=== PATIENT | male | born 1980 | race American Indian/Alaskan Native ===

== ENCOUNTER 2016-08-28 20:55 | Emergency (ER) | payer OTHER ==
[2016-08-28 21:11] VITALS: BP 125/72
[2016-08-28 21:50] LABS: Hematocrit 43.7 % (35.5-45.6); Hemoglobin 14.8 gm/dl (11.8-15.2); Mean Corpuscular HGB Conc 34 % (32-34); Mean Corpuscular Hemoglobin 29 pg (28-32); Mean Corpuscular Volume 86 fl (84-94); Platelet Count 222 K/mm3 (140-440); Red Cell Distribution Width 12.2 % (13.2-15.2); White Blood Count 8.4 K/mm3 (4.5-11.0)
[2016-08-28 21:53] LABS: Anion Gap 17 mmol/L; BUN/Creatinine Ratio 17.14; Blood Urea Nitrogen 12 mg/dL (9-20); Calcium 8.9 mg/dL (8.4-10.2); Carbon Dioxide 25 mmol/L (22-30); Chloride 104.2 mmol/L (98-107); Glucose 95 mg/dL (75-100); Sodium 142 mmol/L (137-145)
[2016-08-28 22:29] LABS: Basophils % (Manual) 0 % (0.0-1.8); Blastocytes % (Manual) 0 %
[2016-08-28 22:31] LABS: Anisocytosis 2+; Diff Status Complete
[2016-08-29] MEDS ORDERED: TYLENOL PO ONE (03:11)
[2016-08-29] MEDS ORDERED: TORADOL IM ONE (03:11)
--- NOTE | 2016-08-29 03:12 | Emergency Department Report ---
ED Chest Pain HPI - General Chief Complaint: Dyspnea/Respdistress Stated Complaint: CP/SOB Time Seen by Provider: 08/29/16 03:04 Source: patient, RN notes reviewed Mode of arrival: Ambulatory Limitations: No Limitations - History of Present Illness Initial Comments: This is a 36-year-old male. He does not have a primary care doctor. He denies chronic medical conditions. He consumes marijuana recreationally. 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 He presents to the ER complaining of chest pain. Chest pain is on the left side and right side of his chest. Increases with palpation and coughing. Positive nausea, no vomiting. Patient reports subjective wheezing. There is no leg pain. There is no leg swelling. No cocaine use. No hematemesis or bright red blood per rectum. No history of ACS in the family that he is aware of. MD Complaint: chest pain -: Gradual Onset: during rest Pain Location: left chest, right chest Severity: moderate Severity scale (0 -10): 6 Quality: aching Consistency: intermittent Improves With: rest Worsens With: palpation Context: recent travel re: nausea Aspirin use within the Past 7 Days: (0) No - Related Data On Oral Contraceptives: No Previous Rx's Medication Instructions Recorded Last Taken Type Albuterol Sulfate [Proair 90 mcg IH Q4HR PRN #2 aer.[email or web address] 08/29/16 Unknown Rx Respiclick] Levofloxacin [Levaquin] 750 mg PO QDAY #6 tablet 08/29/16 Unknown Rx Metoclopramide [Reglan] 10 mg PO QID PRN #30 tablet 08/29/16 Unknown Rx Allergies Allergy/AdvReac Type Severity Reaction Status Date / Time passion fruit Allergy Unknown Verified 08/28/16 21:11 tomato Allergy Unknown Verified 08/28/16 21:11 KWABENA score - Kwabena Score Age > 65: (0) No Aspirin use within the Past 7 Days: (0) No 3 or more CAD Risk Factors: (0) No 2 or more Angina events in past 24 hrs: (0) No Known CAD with more than 50% Stenosis: (0) No Elevated Cardiac Markers: (0) No ST Deviation Greater than 0.5mm: (0) No KWABENA Score: 0 ED Review of Systems ROS: Stated complaint: CP/SOB Other details as noted in HPI Constitutional: denies: fever Eyes: denies: vision change ENT: denies: epistaxis Respiratory: see HPI Cardiovascular: chest pain Gastrointestinal: denies: abdominal pain Genitourinary: denies: urgency, dysuria Musculoskeletal: denies: arthralgia Skin: denies: lesions Neurological: denies: weakness Psychiatric: denies: anxiety ED Past Medical Hx - Past Medical History Additional medical history: seasonal allergies - Social History Smoking Status: Current Every Day Smoker Substance Use Type: None - Medications Home Medications: Home Medications Medication Instructions Recorded Confirmed Last Taken Type Albuterol Sulfate [Proair 90 mcg IH Q4HR PRN #2 aer.[email or web address] 08/29/16 Unknown Rx Respiclick] Levofloxacin [Levaquin] 750 mg PO QDAY #6 tablet 08/29/16 Unknown Rx Metoclopramide [Reglan] 10 mg PO QID PRN #30 tablet 08/29/16 Unknown Rx ED Physical Exam - General Limitations: No Limitations General appearance: alert, in no apparent distress, other (patient initially sleeping comfortably in the stretcher. When woken up for the interview, he is pleasant, cooperative, laughing, smiling and joking.) - Head Head exam: Present: atraumatic, normocephalic - Eye Eye exam: Present: normal appearance, EOMI. Absent: nystagmus - ENT ENT exam: Present: normal exam, normal orophraynx, mucous membranes moist, normal external ear exam - Neck Neck exam: Present: normal inspection, full ROM. Absent: tenderness - Respiratory Respiratory exam: Present: normal lung sounds bilaterally, chest wall tenderness. Absent: respiratory distress, wheezes, rales, rhonchi, stridor - Cardiovascular Cardiovascular Exam: Present: regular rate, normal rhythm, normal heart sounds. Absent: bradycardia, tachycardia, irregular rhythm, systolic murmur, diastolic murmur, rubs, gallop - GI/Abdominal GI/Abdominal exam: Present: soft, normal bowel sounds. Absent: distended, tenderness, guarding, rebound, rigid, pulsatile mass - Rectal Rectal exam: Present: deferred - Extremities Exam Extremities exam: Present: normal inspection, full ROM, normal capillary refill. Absent: tenderness, pedal edema, joint swelling, calf tenderness - Back Exam Back exam: Present: normal inspection, full ROM. Absent: tenderness, CVA tenderness (R), CVA tenderness (L), muscle spasm, paraspinal tenderness, vertebral tenderness - Neurological Exam Neurological exam: Present: alert, oriented X3, normal gait, other (Extraocular movements intact. Tongue midline. No facial droop. Facial sensation intact to light touch in the V1, V2, V3 distribution bilaterally. 5 and 5 strength in 4 extremities.. Sensation is intact to light touch in 4 extremities.). Absent : motor sensory deficit - Psychiatric Psychiatric exam: Present: normal affect, normal mood - Skin Skin exam: Present: warm, dry, intact, normal color. Absent: rash ED Course Vital Signs 08/28/16 08/29/16 08/29/16 21:03 03:06 03:07 Temperature 98.4 F Pulse Rate 98 H 76 Respiratory 20 18 Rate Blood Pressure 125/72 O2 Sat by Pulse 99 100 Oximetry - Reevaluation(s) Reevaluation #1: 08/29/16 04:19 Differential diagnosis: Pneumonia, costochondritis, GERD, reflux, acute coronary syndrome, pulmonary embolus, costochondritis, pleuritis, pericarditis Assessment and plan: 36-year-old male with clinically atypical chest pain, abnormal EKG with a rightward axis with no prior for comparison, works as a long -distance class a truck driver. He is not hypoxic, and he is breathing quite comfortably. I find him to be low risk by well's criteria, think that he has low pretest probability, although he did have a transient episode of tachycardia with a heart rate of 101 while I was evaluating him. Troponins are negative 2, I find him to be low risk by KWABENA score, and low risk by HEART score. X-ray of the chest is not consistent with pneumonia, or acute intrapulmonary process. A d-dimer has been ordered and is pending. The patient felt improved after his pain was treated symptomatically. Reevaluation #2: 08/29/16 04:38 d-dimer is elevated. Repeat troponin is negative. Patient feels improved at the pain medication, had nonspecific welts develop after being given Toradol. CT angiogram ordered. Benadryl and Pepcid ordered. Reevaluation #3: 08/29/16 05:28 CT scan of the chest negative for pulmonary embolus. Infiltrate noted in the right middle lobe and left lower lobe. Patient saturating well. No active vomiting. Sleeping comfortably. may be a case of atypical walking pneumonia. Will be started on Levaquin. Patient will be discharged with Levaquin. Cast to follow up with a primary care doctor. Counseled to discontinue cannabis consumption. Return precautions are reviewed. ED Medical Decision Making - Lab Data Result diagrams: 08/28/16 21:19 08/28/16 21:19 Vital Signs 08/28/16 08/29/16 08/29/16 21:03 03:06 03:07 Temperature 98.4 F Pulse Rate 98 H 76 Respiratory 20 18 Rate Blood Pressure 125/72 O2 Sat by Pulse 99 100 Oximetry Lab Results 08/28/16 08/28/16 08/29/16 Range/Units 21:19 21:19 03:37 WBC 8.4 (4.5-11.0) K/mm3 RBC 5.10 H (3.65-5.03) M/mm3 Hgb 14.8 (11.8-15.2) gm/dl Hct 43.7 (35.5-45.6) % MCV 86 (84-94) fl MCH 29 (28-32) pg MCHC 34 (32-34) % RDW 12.2 L (13.2-15.2) % Plt Count 222 (140-440) K/mm3 Lymph % (Auto) Batch Dumper Lymph # Batch Dumper Add Manual Diff Complete Total Counted 100 Seg Neutrophils % Batch Dumper Seg Neuts % (Manual) 29.0 L (40.0-70.0) % Band Neutrophils % 0 % Lymphocytes % (Manual) 55.0 H (13.4-35.0) % Reactive Lymphs % (Man) 0 % Monocytes % (Manual) 9.0 H (0.0-7.3) % Eosinophils % (Manual) 7.0 H (0.0-4.3) % Basophils % (Manual) 0 (0.0-1.8) % Metamyelocytes % 0 % Myelocytes % 0 % Promyelocytes % 0 % Blast Cells % 0 % Nucleated RBC % Not Reportable Seg Neutrophils # Man 2.4 (1.8-7.7) K/mm3 Band Neutrophils # 0.0 K/mm3 Lymphocytes # (Manual) 4.6 (1.2-5.4) K/mm3 Abs React Lymphs (Man) 0.0 K/mm3 Monocytes # (Manual) 0.8 (0.0-0.8) K/mm3 Eosinophils # (Manual) 0.6 H (0.0-0.4) K/mm3 Basophils # (Manual) 0.0 (0.0-0.1) K/mm3 Metamyelocytes # 0.0 K/mm3 Myelocytes # 0.0 K/mm3 Promyelocytes # 0.0 K/mm3 Blast Cells # 0.0 K/mm3 WBC Morphology Not Reportable Hypersegmented Neuts Not Reportable Hyposegmented Neuts Not Reportable Hypogranular Neuts Not Reportable Smudge Cells Not Reportable Toxic Granulation Not Reportable Toxic Vacuolation Not Reportable Dohle Bodies Not Reportable Pelger-Huet Anomaly Not Reportable Marv Rods Not Reportable Platelet Estimate Appears normal Clumped Platelets Not Reportable Plt Clumps, EDTA Not Reportable Large Platelets Not Reportable Giant Platelets Not Reportable Platelet Satelliting Not Reportable Plt Morphology Comment Not Reportable RBC Morphology Not Reportable Dimorphic RBCs Not Reportable Polychromasia Not Reportable Hypochromasia Not Reportable Poikilocytosis Not Reportable Anisocytosis 2+ Microcytosis Not Reportable Macrocytosis Not Reportable Spherocytes Not Reportable Pappenheimer Bodies Not Reportable Sickle Cells Not Reportable Target Cells Not Reportable Tear Drop Cells Not Reportable Ovalocytes Not Reportable Helmet Cells Not Reportable [place] Bodies Not Reportable [place] Rings Not Reportable Elizabeth Cells Not Reportable Bite Cells Not Reportable Crenated Cell Not Reportable Elliptocytes Not Reportable Acanthocytes (Spur) Not Reportable Rouleaux Not Reportable Hemoglobin C Crystals Not Reportable Schistocytes Not Reportable Malaria parasites Not Reportable Keven Bodies Not Reportable Hem Pathologist Commnt No PT 14.8 (12.2-14.9) Sec. INR 1.17 H (0.87-1.13) Sodium 142 (137-145) mmol/L Potassium 4.0 (3.6-5.0) mmol/L Chloride 104.2 (98-107) mmol/L Carbon Dioxide 25 (22-30) mmol/L Anion Gap 17 mmol/L BUN 12 (9-20) mg/dL Creatinine 0.7 L (0.8-1.5) mg/dL Estimated GFR > 60 ml/min BUN/Creatinine Ratio 17.14 % Glucose 95 (75-100) mg/dL Calcium 8.9 (8.4-10.2) mg/dL Troponin T < 0.010 (0.00-0.029) ng/mL 08/29/16 Range/Units 03:37 WBC (4.5-11.0) K/mm3 RBC (3.65-5.03) M/mm3 Hgb (11.8-15.2) gm/dl Hct (35.5-45.6) % MCV (84-94) fl MCH (28-32) pg MCHC (32-34) % RDW (13.2-15.2) % Plt Count (140-440) K/mm3 Lymph % (Auto) Lymph # Add Manual Diff Total Counted Seg Neutrophils % Seg Neuts % (Manual) (40.0-70.0) % Band Neutrophils % % Lymphocytes % (Manual) (13.4-35.0) % Reactive Lymphs % (Man) % Monocytes % (Manual) (0.0-7.3) % Eosinophils % (Manual) (0.0-4.3) % Basophils % (Manual) (0.0-1.8) % Metamyelocytes % % Myelocytes % % Promyelocytes % % Blast Cells % % Nucleated RBC % Seg Neutrophils # Man (1.8-7.7) K/mm3 Band Neutrophils # K/mm3 Lymphocytes # (Manual) (1.2-5.4) K/mm3 Abs React Lymphs (Man) K/mm3 Monocytes # (Manual) (0.0-0.8) K/mm3 Eosinophils # (Manual) (0.0-0.4) K/mm3 Basophils # (Manual) (0.0-0.1) K/mm3 Metamyelocytes # K/mm3 Myelocytes # K/mm3 Promyelocytes # K/mm3 Blast Cells # K/mm3 WBC Morphology Hypersegmented Neuts Hyposegmented Neuts Hypogranular Neuts Smudge Cells Toxic Granulation Toxic Vacuolation Dohle Bodies Pelger-Huet Anomaly Marv Rods Platelet Estimate Clumped Platelets Plt Clumps, EDTA Large Platelets Giant Platelets Platelet Satelliting Plt Morphology Comment RBC Morphology Dimorphic RBCs Polychromasia Hypochromasia Poikilocytosis Anisocytosis Microcytosis Macrocytosis Spherocytes Pappenheimer Bodies Sickle Cells Target Cells Tear Drop Cells Ovalocytes Helmet Cells [place] Bodies [place] Rings Elizabeth Cells Bite Cells Crenated Cell Elliptocytes Acanthocytes (Spur) Rouleaux Hemoglobin C Crystals Schistocytes Malaria parasites Keven Bodies Hem Pathologist Commnt PT (12.2-14.9) Sec. INR (0.87-1.13) Sodium (137-145) mmol/L Potassium (3.6-5.0) mmol/L Chloride (98-107) mmol/L Carbon Dioxide (22-30) mmol/L Anion Gap mmol/L BUN (9-20) mg/dL Creatinine (0.8-1.5) mg/dL Estimated GFR ml/min BUN/Creatinine Ratio % Glucose (75-100) mg/dL Calcium (8.4-10.2) mg/dL Troponin T < 0.010 (0.00-0.029) ng/mL - EKG Data When compared to previous EKG there are: previous EKG unavailable 08/29/16 04:21 normal sinus, 78 bpm, borderline rightward axis, abnormal EKG, morphologically consistent with STEMI, there is no prior EKG available for comparison. - Radiology Data Radiology results: report reviewed, image reviewed interpreted by me: X-ray of the chest negative CT angiogram of the chest: No pulmonary embolus, left lower lobe infiltrate, right middle lobe infiltrate. Critical care attestation.: If time is entered above; I have spent that time in minutes in the direct care of this critically ill patient, excluding procedure time. ED Disposition Clinical Impression: Chest pain Disposition: DISCHARGED TO HOME OR SELFCARE Is pt being admited?: No Does the pt Need Aspirin: No Condition: Stable Instructions: Community-acquired Pneumonia (ED) Additional Instructions: Laboratory studies were unremarkable. CT scan of the chest suggested pneumonia in the right middle lobe and left lower lobe lung. Take a breathing medication as needed. Take antibiotics as directed. Do not consume alcohol while taking the medication. Take nausea medication as needed. Discontinue marijuana consumption. Follow-up with the primary care doctor within the next week. Dr. Raymundo is a local primary care doctor. EKG demonstrated nonspecific abnormalities, which should be followed up by her primary care doctor or operations staff specialist security. Return to the ER right away with new pain, worsened pain, migration of pain, fevers or chills, intractable nausea or vomiting, inability to tolerate liquid feeds. Referrals: PRIMARY CARE, [Primary Care Provider] - 3-5 Days VERNELL RAYMUNDO MD [Staff Physician] - 3-5 Days
[2016-08-29 04:03] LABS: INR 1.17 (0.87-1.13)
[2016-08-29] MEDS ORDERED: NACL 0.9% 1000 ML 1,000 ML IV ONE (04:34)
[2016-08-29] MEDS ORDERED: BENADRYL IV ONE (04:36)
[2016-08-29] MEDS ORDERED: PEPCID IV ONE (04:36)
--- NOTE | 2016-08-29 05:18 | Cat Scan Report ---
FINAL REPORT PROCEDURE: CT ANGIO CHEST TECHNIQUE: Computerized axial tomographic angiography of the chest and pulmonary arteries was performed after the IV injection of iodinated nonionic contrast. The image data was postprocessed using maximum intensity projection (MIP) and 2-dimensional multiplanar reformatted (MPR) techniques. The examination is specifically tailored to the evaluation of the pulmonary arteries per clinical request. HISTORY: Short of breath 786.09, chest pain 786.50, cp sob ? PE COMPARISON: No prior studies are available for comparison. FINDINGS: Heart and pericardium: Normal. Thoracic aorta: Normal. Pulmonary vasculature: Normal. No pulmonary emboli. Lymph nodes: No enlarged thoracic lymph nodes. Lungs: Lungs are well-expanded. There are infiltrates in the right middle lobe and left lower lobe. Pleural space: There are no effusions or pneumothoraces.. Musculoskeletal structures: No significant abnormality. Upper abdominal structures: No significant abnormality. IMPRESSION: There is no thoracic aortic aneurysm or dissection. There is no pulmonary embolism. Lungs are well-expanded. There are infiltrates in the right middle lobe and left lower lobe. There are no effusions or pneumothoraces.. .
[2016-08-29] MEDS ORDERED: LEVAQUIN 750MG/150ML 750 MG/150 ML BAG IV ONE (05:27)
--- NOTE | 2016-08-29 07:35 | XRay Report ---
CHEST 2 VIEWS INDICATION: Shortness of breath. COMPARISON: None similar at this institution. FINDINGS: PA and lateral chest radiographs demonstrate normal cardiomediastinal silhouette. Lung markings minimally crowded towards the bases without dense focal consolidation, pleural effusions or CHF. Intact bones. CONCLUSION: No acute disease in the chest. Thank you for the opportunity to participate in this patient's care.
== END 2016-08-29 06:42 | disposition home or self-care (01) ==
LOC: ED 20:55
DX: R07.9 Chest pain, unspecified (principal); F17.200 Nicotine dependence, unspecified, uncomplicated; Z91.018 Allergy to other foods
CPT/HCPCS: 36415; 71020; 71275; 80048; 84484; 85007; 85025; 85379; 85610; 93005; 93010; 96361; 96365; 96372; 96375; 99284; J1200; J1885; J1956; J7030; Q9967

== ENCOUNTER 2016-10-04 22:50 | Emergency (ER) | payer SELFPAY ==
[2016-10-05 04:30] LABS: Bilirubin,Urine NEG (Negative); Blood,Urine NEG (Negative); Ketones,Urine NEG (Negative); Leukocyte Esterase,Urine NEG (Negative); Mucus,Urine FEW /HPF; Nitrite,Urine NEG (Negative); Protein,Urine <15 mg/dL mg/dL (Negative)
--- NOTE | 2016-10-05 05:39 | Emergency Department Report ---
ED Male HPI - General Chief complaint: Urogenital-Male Stated complaint: POSS STD Time Seen by Provider: 10/05/16 04:13 Source: patient Mode of arrival: Ambulatory Limitations: No Limitations - History of Present Illness Initial comments: Patient here reported that his girlfriend reported to him that he has been exposed to Trichomonas from her. She denies any urinary burning frequency or urgency. Denies any abdominal, testicular or back pain. Pt here To get some Flagyl. He is unsure of girlfriend had clubbing chlamydia or gonorrhea she says she did not share with him. Denies any fever or chills. Denies any nausea vomiting. MD Complaint: other (exposure to STD) Onset/Timin -: days(s) Severity scale (0 -10): 0 new sexual partner denies: discharge, swelling, mass, rash, urinary retention, blood in urine, dysuria, fever, nausea/vomiting, incontinence - Related Data Sexually active: Yes Previous Rx's Medication Instructions Recorded Last Taken Type Albuterol Sulfate [Proair 90 mcg IH Q4HR PRN #2 aer.[email or web address] 08/29/16 Unknown Rx Respiclick] Levofloxacin [Levaquin] 750 mg PO QDAY #6 tablet 08/29/16 Unknown Rx Metoclopramide [Reglan] 10 mg PO QID PRN #30 tablet 08/29/16 Unknown Rx Allergies Allergy/AdvReac Type Severity Reaction Status Date / Time passion fruit Allergy Unknown Verified 08/28/16 21:11 tomato Allergy Unknown Verified 08/28/16 21:11 ED Review of Systems ROS: Stated complaint: POSS STD Other details as noted in HPI Comment: All other systems reviewed and negative Constitutional: denies: chills, fever ENT: denies: throat pain Respiratory: no symptoms reported Cardiovascular: denies: chest pain, palpitations, edema, syncope Gastrointestinal: denies: abdominal pain, nausea, vomiting Genitourinary: denies: urgency, dysuria, frequency, hematuria, discharge, testicular pain, testicular mass Musculoskeletal: denies: back pain, arthralgia Skin: denies: rash Neurological: denies: headache ED Past Medical Hx - Past Medical History Previous Medical History?: No Additional medical history: seasonal allergies - Surgical History Past Surgical History?: No - Family History Family history: no significant - Social History Smoking Status: Current Every Day Smoker Substance Use Type: None - Medications Home Medications: Home Medications Medication Instructions Recorded Confirmed Last Taken Type Albuterol Sulfate [Proair 90 mcg IH Q4HR PRN #2 aer.[email or web address] 08/29/16 Unknown Rx Respiclick] Levofloxacin [Levaquin] 750 mg PO QDAY #6 tablet 08/29/16 Unknown Rx Metoclopramide [Reglan] 10 mg PO QID PRN #30 tablet 08/29/16 Unknown Rx ED Physical Exam - General Limitations: No Limitations General appearance: alert, in no apparent distress - Head Head exam: Present: atraumatic, normocephalic, normal inspection - Eye Eye exam: Present: normal appearance, PERRL, EOMI Pupils: Present: normal accommodation - ENT ENT exam: Present: normal exam, normal orophraynx, mucous membranes moist, TM's normal bilaterally, normal external ear exam - Neck Neck exam: Present: normal inspection, full ROM. Absent: tenderness, meningismus, lymphadenopathy - Respiratory Respiratory exam: Present: normal lung sounds bilaterally. Absent: respiratory distress, wheezes, rales, rhonchi, stridor, chest wall tenderness - Cardiovascular Cardiovascular Exam: Present: regular rate, normal rhythm, normal heart sounds - GI/Abdominal GI/Abdominal exam: Present: soft, normal bowel sounds. Absent: distended, tenderness, guarding, rebound, rigid - exam: Present: normal inspection, testicular tenderness External exam: Present: normal external exam - Extremities Exam Extremities exam: Present: normal inspection, full ROM, normal capillary refill. Absent: tenderness, pedal edema, joint swelling, calf tenderness - Neurological Exam Neurological exam: Present: alert, oriented X3, normal gait, reflexes normal. Absent: motor sensory deficit - Psychiatric Psychiatric exam: Present: normal affect, normal mood - Skin Skin exam: Present: warm, dry, intact, normal color. Absent: rash ED Course Vital Signs 10/04/16 10/05/16 23:43 02:15 Temperature 98 F Pulse Rate 102 H 64 Respiratory 16 18 Rate Blood Pressure 130/71 113/73 Blood Pressure 130/71 [Left] O2 Sat by Pulse 100 97 Oximetry - Reevaluation(s) Reevaluation #1: 10/05/16 05:40 Patient remained stable throughout ED course. ED Medical Decision Making - Lab Data Lab Results 03/25/17 Range/Units 01:19 Urine Color Yellow (Yellow) Urine Turbidity Clear (Clear) Urine pH 7.0 (5.0-7.0) Ur Specific [place] 1.024 (1.003-1.030) Urine Protein <15 mg/dl (Negative) mg/dL Urine Glucose (UA) Neg (Negative) mg/dL Urine Ketones Neg (Negative) mg/dL Urine Blood Neg (Negative) Urine Nitrite Neg (Negative) Urine Bilirubin Neg (Negative) Urine Urobilinogen 2.0 (<2.0) mg/dL Ur Leukocyte Esterase Neg (Negative) Urine WBC (Auto) 2.0 (0.0-6.0) /HPF Urine RBC (Auto) 7.0 (0.0-6.0) /HPF Urine Mucus Few /HPF - Medical Decision Making ED course: Patient here reported that his girlfriend told them that she had Trichomonas but didn't tell him if she had anything else. He said he is here to get treatment for Trichomonas. Discussed STD with patient including Trichomonas, gonorrhea and chlamydia. Given the choice further testing for gonorrhea and chlamydia are to be treated empirically and patient was treated for all 3 STDs. Discussed with him to refrain from alcohol for 7 days and to refrain from having sex for 10 days. Patient was understanding of discharge diagnosis and treatment plan. Patient had no adverse reaction from medication. Critical care attestation.: If time is entered above; I have spent that time in minutes in the direct care of this critically ill patient, excluding procedure time. ED Disposition Clinical Impression: STD exposure, Sexually transmitted disease Disposition: DISCHARGED TO HOME OR SELFCARE Is pt being admited?: No Does the pt Need Aspirin: No Condition: Stable Instructions: Safe Sex (ED), Sexually Transmitted Diseases (ED) Additional Instructions: no alcohol for 7 days as medication that he took for Trichomonas can cause negative reaction with personal trainer. Please do not have sex for 10 days and follow-up with health department in 7-10 days for STD testing. practice safe sex Referrals: PRIMARY CARE, [Primary Care Provider] - 3-5 Days
[2016-10-05] MEDS ORDERED: XYLOCAINE 1% MPF 5 mL INFILTRATI ONE (05:44)
[2016-10-05] MEDS ORDERED: ZITHROMAX PO ONE (05:44)
[2016-10-05] MEDS ORDERED: FLAGYL PO ONE (05:44)
[2016-10-05] MEDS ORDERED: ROCEPHIN IM ONE (05:44)
[2016-10-05 06:01] VITALS: BP 126/79
== END 2016-10-05 06:00 | disposition home or self-care (01) ==
LOC: ED 22:50
DX: Z20.2 Contact with and (suspected) exposure to infections with a predominantly sexual mode of transmission (principal); F17.200 Nicotine dependence, unspecified, uncomplicated; Z91.018 Allergy to other foods
CPT/HCPCS: 81001; 96372; 99282; J0696

== ENCOUNTER 2018-01-22 06:47 | Emergency (ER) | payer SELFPAY ==
[2018-01-22 07:38] LABS: Hematocrit 38.9 % (35.5-45.6); Hemoglobin 13.5 gm/dl (11.8-15.2); Mean Corpuscular HGB Conc 35 % (32-34); Mean Corpuscular Hemoglobin 29 pg (28-32); Mean Corpuscular Volume 84 fl (84-94); Platelet Count 262 K/mm3 (140-440); Red Blood Count 4.63 M/mm3 (3.65-5.03); Red Cell Distribution Width 13.4 % (13.2-15.2)
[2018-01-22 07:48] LABS: Alanine Aminotransferase 12 units/L (7-56); Albumin 3.5 g/dL (3.9-5); BUN/Creatinine Ratio 13; Blood Urea Nitrogen 8 mg/dL (9-20); Calcium 9.1 mg/dL (8.4-10.2); Hemolysis Index 58
[2018-01-22 07:58] LABS: Mucus,Urine 2+ /HPF
[2018-01-22 08:04] LABS: Bilirubin,Urine NEG (Negative); Blood,Urine NEG (Negative); Color,Urine Yellow (Yellow); Protein,Urine <15 mg/dL mg/dL (Negative)
[2018-01-22] MEDS ORDERED: MOTRIN PO ONE (09:03)
--- NOTE | 2018-01-22 09:07 | Emergency Department Report ---
ED General Adult HPI - General Chief complaint: Abdominal Pain Stated complaint: ABD PAIN Time Seen by Provider: 01/22/18 09:01 Source: patient Mode of arrival: Ambulatory Limitations: No Limitations - History of Present Illness Initial comments: Previously healthy 37-year-old man presents with 2 week history of left lower lateral chest wall discomfort, with exacerbations with deep breathing or movement. Pain is moderate in intensity, being 6-7 out of 10, was initially somewhat intermittent, but present much of the time, and has been persistent, and feels like it may be getting a little worse a little more constant. Patient's only significant altered activity was that he helped his brother weed his yard 2 weeks ago, but this was solid repetitive work for 2 full days, with onset of discomfort the following day. Patient smokes cigarettes on a daily basis, has no prior history of asthma or COPD, has no cough or congestion, no sputum production, and no fevers. He has not had any abdominal pain, no nausea or vomiting, no diarrhea, no back pain. Has not noticed any rash either. He is just back from an overnight drive from [facility], is sleepy, but otherwise has no additional symptoms. - Related Data Previous Rx's Medication Instructions Recorded Last Taken Type Albuterol Sulfate [Proair 90 mcg IH Q4HR PRN #2 [email or web address] 08/29/16 Unknown Rx Respiclick] Levofloxacin [Levaquin] 750 mg PO QDAY #6 tablet 08/29/16 Unknown Rx Metoclopramide [Reglan] 10 mg PO QID PRN #30 tablet 08/29/16 Unknown Rx methylPREDNISolone [Medrol Dose 4 mg PO DAILY #1 pack 01/22/18 Unknown Rx Gerardo] Allergies Allergy/AdvReac Type Severity Reaction Status Date / Time passion fruit Allergy Unknown Verified 01/22/18 06:51 tomato Allergy Unknown Verified 01/22/18 06:51 ED Review of Systems ROS: Stated complaint: ABD PAIN Other details as noted in HPI Comment: All other systems reviewed and negative Constitutional: denies: chills, fever, weakness ENT: denies: ear pain, throat pain Respiratory: denies: cough, shortness of breath, wheezing Cardiovascular: denies: chest pain, palpitations, dyspnea on exertion, orthopnea , edema, syncope Endocrine: no symptoms reported Gastrointestinal: denies: abdominal pain, nausea, diarrhea Genitourinary: denies: urgency, dysuria Musculoskeletal: denies: back pain, myalgia Skin: denies: rash, lesions Neurological: denies: headache, weakness, paresthesias Psychiatric: denies: anxiety, depression Hematological/Lymphatic: denies: easy bleeding, easy bruising ED Past Medical Hx - Past Medical History Previous Medical History?: No Additional medical history: seasonal allergies - Surgical History Past Surgical History?: No - Social History Smoking Status: Never Smoker Substance Use Type: None - Medications Home Medications: Home Medications Medication Instructions Recorded Confirmed Last Taken Type Albuterol Sulfate [Proair 90 mcg IH Q4HR PRN #2 [email or web address] 08/29/16 Unknown Rx Respiclick] Levofloxacin [Levaquin] 750 mg PO QDAY #6 tablet 08/29/16 Unknown Rx Metoclopramide [Reglan] 10 mg PO QID PRN #30 tablet 08/29/16 Unknown Rx methylPREDNISolone [Medrol Dose 4 mg PO DAILY #1 pack 01/22/18 Unknown Rx Gerardo] ED Physical Exam - General Limitations: No Limitations General appearance: in no apparent distress, other (moves easily, but reports some discomfort with deep inspiration or left arm movement) - Head Head exam: Present: atraumatic, normocephalic - Eye Eye exam: Present: PERRL, EOMI - ENT ENT exam: Present: normal exam, mucous membranes moist - Neck Neck exam: Present: normal inspection, full ROM. Absent: tenderness, meningismus - Respiratory Respiratory exam: Present: wheezes (modest, present left posterior lateral chest , no rhonchi, no rales), chest wall tenderness (left lateral chest wall, lower portion, no bony defects, no crepitus). Absent: rales, rhonchi - Cardiovascular Cardiovascular Exam: Present: regular rate, normal heart sounds. Absent: systolic murmur, diastolic murmur, rubs - GI/Abdominal GI/Abdominal exam: Present: soft, normal bowel sounds. Absent: guarding, rebound - Rectal Rectal exam: Present: deferred - Extremities Exam Extremities exam: Present: normal inspection, full ROM. Absent: pedal edema - Back Exam Back exam: Present: normal inspection. Absent: tenderness, CVA tenderness (R), CVA tenderness (L), paraspinal tenderness, vertebral tenderness - Neurological Exam Neurological exam: Present: alert, oriented X3. Absent: CN II-XII intact, motor sensory deficit - Psychiatric Psychiatric exam: Present: normal affect, normal mood - Skin Skin exam: Present: warm, dry, intact, normal color. Absent: cyanosis, diaphoretic, petechiae, abrasion, ecchymosis ED Course Vital Signs 01/22/18 06:51 Temperature 36.9 C Pulse Rate 101 H Respiratory 18 Rate Blood Pressure 160/98 O2 Sat by Pulse 98 Oximetry ED Medical Decision Making - Lab Data Result diagrams: 01/22/18 07:09 01/22/18 07:09 Labs are negative for acute process - Radiology Data Radiology results: report reviewed Negative chest x-ray and ribs - Medical Decision Making Patient has isolated left lateral chest wall discomfort, with a history of significant exertion preceding, but no definite injury. Evaluation here is negative, x-rays were negative, and history are not suggestive of acute cardiac or pulmonary process, nor any gastrointestinal or renal process. I suspect patient has had a strain, and given that he has continued to work, and has expressed attention to continue work after discharge, that is likely been perpetuating a strain, and they will get better primarily with rest. In any case, we will treat patient with a short course of Medrol, recommending rest when possible, as well as local heat. Patient to follow up with physician in a week to assess his improvement. - Differential Diagnosis chest wall pain, pneumonia, pleurisy, herpes zoster Critical Care Time: No Critical care attestation.: If time is entered above; I have spent that time in minutes in the direct care of this critically ill patient, excluding procedure time. ED Disposition Clinical Impression: Acute chest wall pain Disposition: DC-01 TO HOME OR SELFCARE Is pt being admited?: No Does the pt Need Aspirin: No Condition: Stable Instructions: Thoracic Pain (ED) Additional Instructions: We are treating you for strain of the left chest wall, and the remainder of your valuation today is negative, with no findings of lung problems, pneumonia, rib injury, and no laboratory findings to suggest any other significant process. We believe that you have strained the left side of your chest as a result of your recent yard work, and that your symptoms have persisted, primarily because you have continued to work. We believe that your symptoms will resolve better if you could rest, but you've indicated that he wanted to continue to work. We' re treating you with strong anti-inflammatory, Medrol, which is a steroid, which decreases inflammation. Take a daily dose as described on the packaging, which decreases every day. He can apply warm compresses as well 15-30 minutes at a time, 3 or 4 times per day as well. Limits her movements as possible, and avoid lifting heavy objects while you're working. Have recheck with your doctor in a week to assess how you're improving Prescriptions: methylPREDNISolone [Medrol Dose Gerardo] 4 mg PO DAILY #1 pack Referrals: PRIMARY CARE, [Primary Care Provider] - 3-5 Days Time of Disposition: 10:28
[2018-01-22 09:30] LABS: Basophils % (Manual) 0 % (0.0-1.8); Total Cells Counted 100
[2018-01-22 09:31] LABS: Anisocytosis 1+; Platelet Estimate Cons
--- NOTE | 2018-01-22 09:54 | XRay Report ---
RIB RADIOGRAPHS WITH CHEST VIEW INDICATION: Atraumatic left lower chest pain for 2 weeks. COMPARISON: August 2016. FINDINGS: Frontal chest as also AP and oblique radiographs to evaluate left ribs, 5 projections demonstrate normal cardiomediastinal silhouette. Stable lungs without effusions, CHF or pneumothorax. Specifically, no definite or significantly displaced left rib fracture identified. CONCLUSION: No acute left rib or chest radiographic abnormality with few incidental findings, as described. Please note that some acute rib fractures may be radiographically occult. Thank you for the opportunity to participate in this patient's care.
[2018-01-22 10:54] VITALS: BP 115/67
== END 2018-01-22 10:54 | disposition home or self-care (01) ==
LOC: ED 06:47
DX: R07.89 Other chest pain (principal); Z91.018 Allergy to other foods
CPT/HCPCS: 36415; 80053; 81001; 85007; 85025